=== PATIENT | male | born 1960 | race Caucasian/White ===

== ENCOUNTER 2019-10-08 14:17 | Outpatient (CLI) | payer BC | END 2019-10-08 14:18 | disposition home or self-care (01) | LOC: COV 14:17 | PROVIDERS: ATTEND Family Medicine | DX: R19.7 Diarrhea, unspecified (principal) ==

== ENCOUNTER 2019-11-05 15:15 | Emergency (ER) | payer BC ==
[2019-11-05 15:48] LABS: BASOPHILS % (AUTO) 0.5 %; EOSINOPHILS # (AUTO) 0.1 10^3/uL (0.0-0.7); HGB - HEMOGLOBIN 14.8 g/dL (14.0-18.0); LYMPHOCYTES # (AUTO) 1.9 10^3/uL (1.5-3.5); LYMPHOCYTES % (AUTO) 30.6 %; MEAN CORPUSCULAR HGB CONC 35.3 g/dL (32.0-36.0); MEAN PLATELET VOLUME 9.4 fL (7.4-11.4); MONOCYTES # (AUTO) 0.7 10^3/uL (0.0-1.0); MONOCYTES % (AUTO) 10.9 %; NEUTROPHILS # (AUTO) 3.4 10^3/uL (1.5-6.6); NEUTROPHILS % (AUTO) 55.7 %; PLT - PLATELET COUNT 239 10^3/uL (130-450); RED BLOOD COUNT 4.93 10^6/uL (4.70-6.10); RED CELL DISTRIBUTION WIDTH 13.4 % (12.0-15.0); WHITE BLOOD COUNT 6.2 x10^3/uL (4.8-10.8)
[2019-11-05 16:00] LABS: ALBUMIN 4.3 g/dL (3.2-5.5); ALBUMIN/GLOBULIN RATIO 1.6 (1.0-2.2); BILIRUBIN,TOTAL 0.8 mg/dL (0.2-1.0); CALCIUM 9.5 mg/dL (8.5-10.3)
[2019-11-05 16:10] LABS: BILIRUBIN,URINE NEGATIVE (NEGATIVE); GLUCOSE, URINE (UA) NEGATIVE (NEGATIVE); KETONES,URINE (UA) NEGATIVE (NEGATIVE); LEUKOCYTE ESTERASE, URINE NEGATIVE (NEGATIVE); NITRITE,URINE NEGATIVE (NEGATIVE); OCCULT BLOOD,URINE NEGATIVE (NEGATIVE); PH,URINE 5.5 PH (5.0-7.5); PROTEIN,URINE NEGATIVE (NEGATIVE); UROBILINOGEN,URINE 0.2 (NORMAL) E.U./dL (NORMAL)
[2019-11-05 16:11] LABS: CLARITY,URINE CLEAR (CLEAR)
--- NOTE | 2019-11-05 16:51 | ED Physician Documentation ---
History of Present Illness - Stated complaint Stated Complaint: ABD PX - Chief complaint Chief Complaint: Abd Pain - Additonal information Additional information: 58-year-old male presents the emergency department for evaluation of 2 days rig ht lower quadrant pain as well as diarrhea ongoing for 1 month. Patient reports that about 1 month ago he returned from an extended road trip with his brother from the [facility]. The day after returning home he began having watery stools and many stools a day. There are times where he has to get up multiple times at night to have watery stools. He did go through a whole box of Imodium which did not help but over the last few weeks he has been taking some probiotics which have helped somewhat. He is now having 1-3 watery stools a day. He denies any bloody or mucoid stools. No history of previous colonoscopy. 2 days ago he developed very mild right lower quadrant abdominal pain. It does not radiate. He denies any hematuria flank pain CVA tenderness he has had no history of similar. He denies any pertinent past medical history. He takes no medicines prescribed by a physician. He has had no nausea vomiting fevers or weight loss. He denies any pertinent past surgical history. He retains his gallbladder and his appendix Review of Systems Constitutional: denies: Fever, Chills, Fatigue, Weight Loss Ears: denies: Tinnitus/ringing Nose: denies: Rhinorrhea / runny nose, Congestion Throat: denies: Dental pain / toothache, Oral lesions / sores, Sore throat Cardiac: denies: Chest pain / pressure, Palpitations, Pedal edema, Calf pain Respiratory: denies: Dyspnea, Cough, Hemoptysis, Wheezing GI: reports: Abdominal Pain, Diarrhea. denies: Nausea, Vomiting, Constipation, Hematemesis, Bloody / black stool : denies: Hesitancy, Hematuria Skin: denies: Rash, Lesions Musculoskeletal: denies: Neck pain, Back pain, Extremity pain, Joint pain Neurologic: denies: Generalized weakness, Focal weakness, Numbness, Difficulty speaking, Syncope, Seizure, Confused PD PAST MEDICAL HISTORY - Past Medical History Past Medical History: No - Past Surgical History Past Surgical History: Yes Ortho: Hip replacement - Present Medications Home Medications: Ambulatory Orders Medication Instructions Recorded Confirmed Ciprofloxacin HCl [Cipro] 500 mg PO BID #20 tablet 11/05/19 - Allergies Allergies/Adverse Reactions: Allergies Allergy/AdvReac Type Severity Reaction Status Date / Time No Known Drug Allergies Allergy Verified 11/05/19 15:26 - Social History Does the pt smoke?: No Smoking Status: Never smoker Does the pt drink ETOH?: No Does the pt have substance abuse?: No - Immunizations Immunizations are current?: Yes PD ED PE NORMAL - General General: Alert and oriented X 3, No acute distress, Well developed/nourished - HEENT HEENT: PERRL, EOMI - Neck Neck: Supple, no meningeal sign, No bony TTP, No adenopathy - Respiratory Respiratory: No respiratory distress - Abdomen Abdomen: Normal bowel sounds, Soft. No: Non tender (Mild tenderness right lower quadrant. Negative psoas negative McBurney's.No rebound or guarding) - Back Back: No CVA TTP, No spinal TTP - Derm Derm: Normal color, Warm and dry, No rash - Extremities Extremities: No deformity - Neuro Neuro: Alert and oriented X 3, payloader operator 2-12 intact, No motor deficit, Normal speech Eye Opening: Spontaneous Motor: Obeys Commands Verbal: Oriented GCS Score: 15 - Psych Psych: Normal mood Results - Vitals Vitals: Vital Signs - 24 hr 11/05/19 15:23 Temperature 36.2 C L Heart Rate 50 L Respiratory 14 Rate Blood Pressure 127/77 O2 Saturation 97 Oxygen O2 Source Room air - Labs Labs: Laboratory Tests 11/05/19 11/05/19 11/05/19 15:45 15:45 16:02 WBC 6.2 RBC 4.93 Hgb 14.8 Hct 41.9 L MCV 85.0 MCH 30.0 MCHC 35.3 RDW 13.4 Plt Count 239 MPV 9.4 Neut # (Auto) 3.4 Lymph # (Auto) 1.9 [place] # (Auto) 0.7 Eos # (Auto) 0.1 Baso # (Auto) 0.0 Absolute Nucleated RBC 0.00 Nucleated RBC % 0.0 Sodium 139 Potassium 3.9 Chloride 106 Carbon Dioxide 26 Anion Gap 7.0 BUN 16 Creatinine 1.0 Estimated GFR (MDRD) 76 L Glucose 125 H Calcium 9.5 Total Bilirubin 0.8 AST 23 ALT 19 Alkaline Phosphatase 47 Total Protein 7.0 Albumin 4.3 Globulin 2.7 Albumin/Globulin Ratio 1.6 Lipase 25 Urine Color YELLOW Urine Clarity CLEAR Urine pH 5.5 Ur Specific [place] >=1.030 H Urine Protein NEGATIVE Urine Glucose (UA) NEGATIVE Urine Ketones NEGATIVE Urine Occult Blood NEGATIVE Urine Nitrite NEGATIVE Urine Bilirubin NEGATIVE Urine Urobilinogen 0.2 (NORMAL) Ur Leukocyte Esterase NEGATIVE Ur Microscopic Review NOT INDICATED Urine Culture Comments NOT INDICATED PD MEDICAL DECISION MAKING - ED course Complexity details: reviewed results, re-evaluated patient, considered differential, d/w patient ED course: 58-year-old male presents to the emergency department for evaluation of 1 month worth of diarrhea as well as 2 days of right lower quadrant abdominal pain. His labs are evaluated and full. Reassuringly he has no significant electrolyte abnormality nor any leukocytosis. The diarrhea is concerning for an infectious etiology versus a simple colitis. At 58 years of age this gentleman has not had a screening colonoscopy. He does report right lower quadrant abdominal pain. On exam today in the emergency department it was very difficult to elicit the abdominal pain. He has no signs of urinary tract infection and no hematuria. However nephrolithiasis does remain on the differential. My suspicion for an acute appendectomy is very low although it cannot be excluded on the basis of this exam. Unfortunately the CT scanner is not working today here at this hospital, But my suspicion for acute appendicitis is low. he has a nearly benign belly exam and no peritoneal signs I have discussed the lab and exam findings with the patient. At this time we will discharge him with a course of Cipro for prolonged diarrhea. I have advised that if his pain worsens, he develops any fevers or he develops bloody diarrhea he is to return to the emergency department. He understands that he is leaving with a nonspecific diagnosis and that appendicitis has not been ruled out. I have also advised that he needs to schedule close follow-up with a primary care doctor for consideration of a screening colonoscopy as he moves forward. Departure - Departure Disposition: 01 Home, Self Care Clinical Impression: RLQ abdominal pain Diarrhea Qualifiers: Diarrhea type: unspecified type Qualified Code(s): R19.7 - Diarrhea, unspecified Instructions: ED Abdominal Pain Unkn Cause, ED Diarrhea Bacterial Inf Td Prescriptions: Ciprofloxacin HCl [Cipro] 500 mg PO BID #20 tablet Comments: Ravi let us start you on a course of antibiotics to treat your diarrhea. At your age it is important that you do have a screening exam for to rule out colon cancer. Please schedule an appointment with a primary care doctor. You may need to be referred for a colonoscopy. You do have some mild lower abdominal pain but your exam today is not consistent with acute appendicitis. However I cannot definitively rule it out at this time. If at home your pain worsens, you have fevers, bloody diarrhea or worsening symptoms please return immediately to the emergency department for a second evaluation
[2019-11-05] MEDS ORDERED: SODIUM CHLORIDE 0.9% 1,000 ML IV STA (16:53)
[2019-11-05 17:27] VITALS: BP 126/70
== END 2019-11-05 17:25 | disposition home or self-care (01) ==
LOC: ED 15:15
DX: R10.31 Right lower quadrant pain (principal); R19.7 Diarrhea, unspecified
CPT/HCPCS: 36415; 80053; 81001; 81003; 83690; 85025; 87086; 99283; 99284

== ENCOUNTER 2022-04-26 07:03 | Outpatient (CLI) | payer SELFPAY | END 2022-04-26 07:04 | disposition EMS.NT | LOC: EMS 07:03 | DX: Z04.1 Encounter for examination and observation following transport accident (principal) ==